=== PATIENT | male | born 1950 | race Caucasian/White ===

== ENCOUNTER → 2019-01-21 | Outpatient (CLI) | payer MEDICARE, OTHER ==
--- NOTE | 2019-01-22 11:23 | RADIOLOGY REPORT (SQ) ---
EXAM DESCRIPTION: PET CT SKULL/THIGH COMPLETED DATE/TIME: 01/21/2019 7:56 pm REASON FOR STUDY: R91.1 SOLITARY PULMONARY NODULE R91.1 SOLITARY PULMONARY NODULE COMPARISON: None. RADIONUCLIDE AND DOSE: 11.22 mCi F18 FDG The route of agent administration: Intravenous FASTING BLOOD SUGAR: 125 mg/dl CONTRAST TYPE AND DOSE: No CT contrast given. TECHNIQUE: Blood glucose level was verified. Above dose of FDG was injected intravenously. 2-D seg mented attenuation correction images were obtained from the base of the skull to the midthighs. Nonc ontrast CT images were obtained for attenuation correction and fusion with emission images. CT image s were performed without oral or intravenous contrast and are not sensitive for parenchymal lesions. A series of overlapping emission PET images were obtained. Images reviewed and manipulated at [facility] [employer] work station by the radiologist. Images stored on PACS. LIMITATIONS: None. FINDINGS: HEAD AND NECK: No areas of abnormal metabolic activity in the soft tissues of the head and neck. CHEST: No areas of abnormal metabolic activity in the chest. The partially calcified 10 mm nodule in the right lower lobe (image 1 of 6 of series 3) demonstrates no abnormal FDG uptake. ABDOMEN AND PELVIS: The liver demonstrates homogeneous non focal FDG uptake. There is expected physi ologic activity throughout the gastrointestinal and genitourinary tracts. The mild uptake FDG uptake in the subcutaneous tissues of the anterior abdominal wall is nonspecific and could be related to [place] bcutaneous injections. No areas of abnormal metabolic activity are identified in the abdomen and pel vis. PROXIMAL LOWER EXTREMITIES: No areas of abnormal metabolic activity in the soft tissues of the lower extremities. BONES: No areas of abnormal metabolic activity in the imaged axial and appendicular skeleton. ADDITIONAL CT FINDINGS: There is cpdl-[id number] atherosclerotic calcification of the coronary arter ies. The gallbladder is surgically absent. There is no acute intra-abdominal abnormality. As stated above, the stranding in the subcutaneous tissues of the ventral abdominal wall is nonspecific and co uld be related to subcutaneous injections. OTHER: No other findings. IMPRESSION: No abnormal FDG uptake on PET. In particular, the partially calcified 10 mm nodule in t he right lower lobe demonstrates no abnormal FDG uptake. TECHNICAL DOCUMENTATION: JOB ID: [id number]- All Rights Reserved Reading location - IP/workstation name: [email or web address]
== END ==
LOC: RAD 14:20
PROVIDERS: ATTEND Hospitalist
DX: R91.1 Solitary pulmonary nodule (principal)
CPT/HCPCS: 78815; A9552